=== PATIENT | female | born 1950 | race Two or more races ===

== ENCOUNTER 2020-01-19 06:35 | Day surgery (SDC) | payer OTHER ==
[~2020-01-19 06:35] MED LIST: COZAAR50 MG PO; SINGULAIR10 MG PO; SYNTHROID100 MCG PO
== END 2020-01-19 20:30 | disposition home or self-care (01) ==
LOC: CIR.AMB 06:35
PROVIDERS: ATTEND Surgery
DX: C50.211 Malignant neoplasm of upper-inner quadrant of right female breast (principal); Z20.828 Contact with and (suspected) exposure to other viral communicable diseases